=== PATIENT | female | born 1975 | race Caucasian/White ===

== ENCOUNTER 2017-12-14 10:21 | Day surgery (SDC) | payer OTHER ==
[~2017-12-14 10:21] MED LIST: AMOX500; AMOX500 PO; BENZ100A PO; BUTALB-ASPIRIN1 EACH PO; Bentyl20 MG PO; CIPR500 PO; CLON1 PO; CODBUTACEC PO; DULO60 PO; GABA100 PO; GABA300 PO; HYDACE5 PO; HYDR1TAB94 PO; METR500 PO; NAPR500 PO; OXYACE5T PO; PRED10 PO; PROCODE120 PO; PROM25 PO; PSEU120ER PO; Promethazine12.5 M1 PO; RXCODGUASY PO; RXHYDACE PO; RXPROCODSY PO; SULF10OPO OP; ZYRTEC10 M1 PO
== END 2017-12-14 13:20 | disposition home or self-care (01) ==
LOC: ORSCSDS 10:21
PROVIDERS: Internal Medicine Gastroenterology
PROC: 0DB98ZX Excision of Duodenum, Via Natural or Artificial Opening Endoscopic, Diagnostic (ICD-10-PCS; principal; 2017-12-14 13:15)
PROC: 0DB68ZX Excision of Stomach, Via Natural or Artificial Opening Endoscopic, Diagnostic (ICD-10-PCS; principal; 2017-12-14 13:15)
DX: R10.9 Unspecified abdominal pain (principal); K31.7 Polyp of stomach and duodenum; R11.2 Nausea with vomiting, unspecified; F41.8 Other specified anxiety disorders; M79.7 Fibromyalgia; Z79.899 Other long term (current) drug therapy
CPT/HCPCS: 88305; 88342; J2405

== ENCOUNTER 2021-03-15 18:29 | Inpatient (IN) | payer OTHER ==
[~2021-03-15] VITALS: Ht 149.9 cm; Wt 55.2 kg
[~2021-03-15 18:29] MED LIST changes: -CYCL10 PO; -DECARA1250 MC1 PO; -PROG100 PO; -Phenergan25 M1 PO
[2021-03-15] MEDS ORDERED: CYCL10 PO (20:03)
[2021-03-15] MEDS ORDERED: DECARA1250 MC1 PO (20:03)
[2021-03-15] MEDS ORDERED: PROG100 PO (20:04)
[2021-03-15] MEDS ORDERED: Phenergan25 M1 PO (20:04)
--- NOTE | 2021-03-16 05:37 | NUR ---
ADMISSION AND SHIFT SUMMARY RECIEVED REPORT FROM ER NURSE. PATIENT ARRIVED TO PCU 13 VIA ER GURNEY. ABLE TO PIVOT TRANSFER TO HOSPITAL BED WITH MINIMAL ASSIST. O2 SATURATION ABOVE 95% ON RA. ORIENTED TO ROOM AND CALL LIGHT SYSTEM. SUMMARY PATIENT ALERT AND ORIENTED T/O SHIFT. PATIENT RESTING QUIETLY, AWAKES TO VERBAL STIMULI. SOFT SBP'S WITH MAP ABOVE 65. REPORTED RADIATING CHEST PAIN ON ADMISSION, SEE EMAR. EPISODES OF N/V, SEE UPDATED ORDERS AND EMAR. EMESIS HAD SMALL AMOUNTS OF BROWN STRING LIKE CONSISTENCY. NOTIFIED HOSPITALIST OF THIS. HEPARIN GTT INFUSING INTO RIGHT AC. REMAINS ON RA WITH O2 SATURATION ABOVE 95%.
[2021-03-16 06:30] LABS: BASOPHILS ABSOLUTE AUTO 0.02 K/mm3 (0.00-0.23); BASOPHILS PERCENT AUTO 0 % (0-2); EOSINOPHILS PERCENT AUTO 0 % (0-6); Hematocrit 50.5 % (33.0-51.0); Hemoglobin 16.7 g/dL (11.5-16.0); IMMATURE GRAN ABSOLUTE AUTO 0.03 K/mm3 (0.00-0.10); IMMATURE GRAN PERCENT AUTO 0 % (0-1); LYMPHOCYTES ABSOLUTE AUTO 1.07 K/mm3 (0.84-5.20); LYMPHOCYTES PERCENT AUTO 13 % (21-46); MONOCYTES ABSOLUTE AUTO 0.76 K/mm3 (0.16-1.47); MONOCYTES PERCENT AUTO 10 % (4-13); Mean Corpuscular HGB 31.3 pg (26.0-34.0); Mean Corpuscular HGB Conc 33.1 g/dL (31.5-36.5); Mean Corpuscular Volume 95 fL (80-100); Mean Platelet Volume 11.7 fL (9.1-12.4); NEUTROPHILS PERCENT AUTO 76 % (41-73); Platelet Count 147 K/mm3 (150-400); RDW Coefficient Variation 12.8 % (11.7-14.2); RDW Standard Deviation 45.1 fL (35.1-46.3); Red Blood Cell Count 5.33 M/mm3 (3.80-5.20); White Blood Cell Count 7.98 K/mm3 (4.00-11.30)
[2021-03-16 06:48] LABS: Anion Gap 10 mmol/L (6-16); Blood Urea Nitrogen 28 mg/dL (8-24); Bun/Creatinine Ratio 29.2 (12.0-20.0); CO2, Blood 19 mmol/L (21-32); Calcium, Blood 7.4 mg/dL (8.5-10.1); Chloride, Blood 105 mmol/L (98-108); Creatinine, Blood 0.96 mg/dL (0.40-1.00); Glomerular Filtration Rate >60 (60-); Glucose, Blood 162 mg/dL (70-99); Magnesium, Blood 2.1 mg/dL (1.6-2.4); Potassium, Blood 4.8 mmol/L (3.5-5.5); Sodium, Blood 134 mmol/L (136-145); Troponin I 0.319 ng/mL (0.000-0.040)
[2021-03-16 09:58] LABS: D-Dimer, Quantitative <0.19 mg/L FEU (0.00-0.52)
--- NOTE | 2021-03-16 10:22 | NUR ---
CARE ASSUMPTION / UPDATE PT A&O X4. VSS. SPO2 > 92% ON RA. PT C/O 5/10 "SHARP" CP RADIATING TO L SHOULDER. PT FURTHER REPORTS CP "FEELS LIKE I'M SUFFOCATING." NITRO PASTE OINTMENT APPLIED PER EMAR W/ PT REPORT OF "NOT REALLY" IMPROVING SYMPTOMS. MD BERGERTE IN TO SEE PT. W/ INSTRUCTION TO CHANGE ECHO ORDER TO STAT. STAT ECHO PERFORMED. BACK TO PT RM W/ REPORT OF PT PERICARDITIS & PERICARDIAL EFFUSION. W/ INSTRUCTION TO DC HEPARIN GTT, START NS GTT & ADD COLCHICINE & ENTERIC COATED ASA, SEE ORDERS.
--- NOTE | 2021-03-16 17:39 | NUR ---
PAIN / EMESIS PT W/ 12/12 LEFT CHEST, SHOULDER & NECK PAIN. PT MEDICATED W/ PRN IV MORPHINE W/ NEAR IMMEDIATE IMPROVEMENT TO 10/12 PAIN & THEN REPORT OF PAIN "SUBSIDED" UPON NEXT RE-ASSESSMENT. PT THEN W/ EPISODE OF APPROX 100 MLS LIQUID CLEAR/BROWN EMESIS. PT C/O CONTINUED NAUSEA, MEDICATED W/ PRN IV PHENERGAN PER EMAR. PT REPORT OF IMPROVEMENT BUT STATING STILL SOME NAUSEA.
--- NOTE | 2021-03-16 18:16 | NUR ---
SHIFT SUMMARY PT CONTINUES TO BE A&O X4. PT C/O "SHARP" CP T/O SHIFT. PAIN INTERMITTENTLY IMPROVING W/ MEDICATION PER EMAR. PT ALSO C/O NAUSEA T/O SHIFT, MEDICATED W/ MEDICATIONS PER EMAR W/ TEMPORARY IMPROVEMENT WELL. PT W/ 1 EPISODE OF LIQUID CLEAR/BROWN EMESIS. PT SYS BP 90's MAJORITY OF SHIFT. MONITOR SHOWING SR-ST W/ ST ELEVATION, HR 90's-120's. NS GTT INFUSING PER ORDERS. SPO2 > 92% ON RA. PT LAYING IN BED W/ REPORT OF PAIN WORSENING W/ ANY ACTIVITY. PT BEDREST AT THIS TIME. PT LAST REPORT OF PAIN CURRENTLY "SUBSIDED" & PT NOW SLEEPING IN RM.
--- NOTE | 2021-03-17 02:20 | NUR ---
UPDATE CALL PLACED TO HOSPITALIST DUE TO PATIENT'S INCREASED CHEST PAIN. EXPLAINED TO HOSPITALIST THAT TYLENOL WAS GIVEN WITH LITTLE RELIEF AND VITAL SIGNS WERE NOT IN PARAMETERS TO GIVE MORPHINE OR APPLY NITRO PASTE. NEW ORDER RECIEVED FOR FENTYNAL, SEE EMAR. PATIENT'S VITAL SIGN MONITOR CHANGED FROM Q1HR TO [id number] TO MONITOR EFFECTS OF FENTYNAL.
--- NOTE | 2021-03-17 05:58 | NUR ---
SHIFT SUMMARY PATIENT ALERT AND ORIENTED X4. SOFT BLOOD PRESSURES THROUGH THE SHIFT. CALL PLACED TO HOSPITALIST AROUND 0400, ORDERS RECIEVED FOR FLUID BOLUS, SEE EMAR. BLOOD PRESSURES IMPROVING SINCE BOLUS WAS GIVEN. PATIENT HAD 2 EPISODES OF VOMITTING WITH SMALL AMOUNT OF EMESIS EACH TIME. MEDICATED PER EMAR. PATIENT STILL REPORTING CHEST PAIN, SEE OTHER NOTE REGARDING UPDATED PAIN MEDICATION AND ADMINISTRATION. NO OTHER SIGNIFICANT CHANGES.
[2021-03-17 06:44] LABS: Albumin, Blood 1.8 g/dL (3.4-5.0); Anion Gap 6 mmol/L (6-16); Blood Urea Nitrogen 23 mg/dL (8-24); Bun/Creatinine Ratio 26.4 (12.0-20.0); CO2, Blood 19 mmol/L (21-32); Calcium, Blood 6.6 mg/dL (8.5-10.1); Chloride, Blood 108 mmol/L (98-108); Creatinine, Blood 0.87 mg/dL (0.40-1.00); Glomerular Filtration Rate >60 (60-); Glucose, Blood 107 mg/dL (70-99); Phosphorus, Blood 2.4 mg/dL (2.5-4.9); Potassium, Blood 4.5 mmol/L (3.5-5.5); Sodium, Blood 133 mmol/L (136-145)
--- NOTE | 2021-03-17 08:01 | NUR ---
CARE ASSUMPTION PATIENT IS A/OX4. SOFT BP. SPO2 >90% ON RA. PATIENT REPORTS NO CHEST PAIN. PATIENT REPORTS PAIN WHEN REPOSITIONING, BUT ONCE REPOSITIONED PAIN IS RELIEVED. PATIENT BECOMES NAUSEOUS WITH REPOSITIONING. BED IN LOWEST POSITION AND CALL LIGHT WITHIN REACH. WILL CONTINUE TO MONITOR AND PROVIDE CARE.
[2021-03-17 08:31] LABS: BASOPHILS ABSOLUTE AUTO 0.02 K/mm3 (0.00-0.23); BASOPHILS PERCENT AUTO 0 % (0-2); EOSINOPHILS PERCENT AUTO 0 % (0-6); Hematocrit 40.9 % (33.0-51.0); Hemoglobin 13.2 g/dL (11.5-16.0); IMMATURE GRAN ABSOLUTE AUTO 0.02 K/mm3 (0.00-0.10); IMMATURE GRAN PERCENT AUTO 0 % (0-1); LYMPHOCYTES PERCENT AUTO 17 % (21-46); MONOCYTES ABSOLUTE AUTO 0.64 K/mm3 (0.16-1.47); MONOCYTES PERCENT AUTO 10 % (4-13); Mean Corpuscular HGB 31.1 pg (26.0-34.0); Mean Corpuscular HGB Conc 32.3 g/dL (31.5-36.5); Mean Corpuscular Volume 96 fL (80-100); Mean Platelet Volume 12.5 fL (9.1-12.4); NEUTROPHILS ABSOLUTE AUTO 4.88 K/mm3 (1.96-9.15); NEUTROPHILS PERCENT AUTO 73 % (41-73); Platelet Count 127 K/mm3 (150-400); RDW Coefficient Variation 13.1 % (11.7-14.2); RDW Standard Deviation 46.9 fL (35.1-46.3); Red Blood Cell Count 4.25 M/mm3 (3.80-5.20); White Blood Cell Count 6.66 K/mm3 (4.00-11.30)
--- NOTE | 2021-03-17 17:54 | NUR ---
SHIFT SUMMARY PATIENT A/OX4. VSS. SOFT BP. SPO2 >90% ON RA. TELE SINUS TACH. PATIENT HAS REPORTED CHEST PAIN THROUGHOUT THE SHIFT WITH MOVEMENT. PATIENT MEDICATED PER EMAR. PATIENT VOMITTED ONCE DURING THE SHIFT, ABOUT 50ML CLEAR. PATIENT MEDICATED PER EMAR. PLAN TO HAVE ECHO DONE IN AM. CALL LIGHT WITHIN REACH. WILL CONTINUE TO MONITOR AND PROVIDE CARE UNTIL HAND OFF WITH NEXT SHIFT.
[2021-03-18 04:11] LABS: Albumin, Blood 1.8 g/dL (3.4-5.0); Anion Gap 8 mmol/L (6-16); Blood Urea Nitrogen 22 mg/dL (8-24); CO2, Blood 21 mmol/L (21-32); Calcium, Blood 6.7 mg/dL (8.5-10.1); Chloride, Blood 106 mmol/L (98-108); Creatinine, Blood 0.88 mg/dL (0.40-1.00); Glomerular Filtration Rate >60 (60-); Glucose, Blood 110 mg/dL (70-99); Phosphorus, Blood 2.1 mg/dL (2.5-4.9); Potassium, Blood 4.3 mmol/L (3.5-5.5); Sodium, Blood 135 mmol/L (136-145)
--- NOTE | 2021-03-18 06:36 | NUR ---
SHIFT SUMMARY PT SLEPT WELL THROUGH THE NIGHT, ALERT AND ORIENTED. SOME COUGHING NOTED, PRN COUGH MEDS GIVEN. TELE NSR. O2 RA, BUT DID DESAT TO 85% WHEN SLEEPING, PLACED 2LNC ON PRN. SATS >95% WHEN AWAKE. INTERMITTENT CHEST PAIN WITH ACTIVITY OR COUGHING. PAIN MEDS OFFERED OUTSIDE OF SCHEDULED ADVIL, PT DECLINED. VOIDING TO BEDPAN. NO BM. VSS, HOURLY BP, RUNNING SOFT, BUT STABLE. CALL LIGHT WITHIN REACH, BED IN LOWEST POSITION. WILL CONTINUE TO MONITOR.
--- NOTE | 2021-03-18 07:56 | NUR ---
CARE ASSUMPTION PATIENT A/OX4. VSS. SOFT BP. TELE SR-ST. SPO2 >90% ON 2L NC WHEN SLEEPING, OTHERWISE ON RA. PATIENT HAS A PRODUCTIVE COUGH. PATIENT REPORTS CHEST PAIN WITH MOVEMENT. NO SOB. PATIENT REPORTS NO NAUSE THIS MORNING. CALL LIGHT WITHIN REACH AND BED IN LOWEST POSITION. WILL CONTINUE TO MONITOR AND PROVIDE CARE.
[2021-03-18 10:43] LABS: BASOPHILS ABSOLUTE AUTO 0.01 K/mm3 (0.00-0.23); BASOPHILS PERCENT AUTO 0 % (0-2); EOSINOPHILS ABSOLUTE AUTO 0.01 K/mm3 (0.00-0.68); EOSINOPHILS PERCENT AUTO 0 % (0-6); Hematocrit 39.7 % (33.0-51.0); Hemoglobin 13.1 g/dL (11.5-16.0); IMMATURE GRAN ABSOLUTE AUTO 0.02 K/mm3 (0.00-0.10); IMMATURE GRAN PERCENT AUTO 0 % (0-1); LYMPHOCYTES ABSOLUTE AUTO 0.82 K/mm3 (0.84-5.20); LYMPHOCYTES PERCENT AUTO 15 % (21-46); MONOCYTES ABSOLUTE AUTO 0.44 K/mm3 (0.16-1.47); MONOCYTES PERCENT AUTO 8 % (4-13); Mean Corpuscular HGB 31.6 pg (26.0-34.0); Mean Corpuscular Volume 96 fL (80-100); Mean Platelet Volume 12.8 fL (9.1-12.4); NEUTROPHILS ABSOLUTE AUTO 4.22 K/mm3 (1.96-9.15); NEUTROPHILS PERCENT AUTO 76 % (41-73); Platelet Count 119 K/mm3 (150-400); RDW Coefficient Variation 13.3 % (11.7-14.2); RDW Standard Deviation 47.8 fL (35.1-46.3); Red Blood Cell Count 4.14 M/mm3 (3.80-5.20); White Blood Cell Count 5.52 K/mm3 (4.00-11.30)
--- NOTE | 2021-03-18 12:45 | NUR ---
TRANSFER TO ICU THIS RN GAVE REPORT TO ICU NURSE. PATIENT BELONGINGS COLLECTED AND TAKEN OVER WITH HER TO ICU.
--- NOTE | 2021-03-18 12:54 | NUR ---
8097 TELEPHONE REPORT RECIEVED FROM GHADA APPIAH RN. SBAR/PLAN OF CARE REVIEWED. ROOM/BED READY; AWAITING ARRIVAL OF PATIENT
[2021-03-18 13:38] LABS: Stool Occult Blood Guaiac 1 Pos (Neg)
[2021-03-18 13:52] LABS: Hematocrit 40.1 % (33.0-51.0); Hemoglobin 12.9 g/dL (11.5-16.0)
--- NOTE | 2021-03-18 14:22 | NUR ---
1330 PATIENT ARRIVED TO UNIT. ASSUMED CARE; PATIENT A/OX4. NC AT 3LPM. NS BOLUS INFUSING. WILL CONTINUE TO MONITOR SEE ASSESSMENT 1402 RECEIVED CALL FROM TRANSFER CENTER. PATIENT TO BE TRANSFERRED TO [facility] ICU. 1419 ATTEMPED TO CALL REPORT TO [place] ICU. RECIEVING NURSE NOT AVAIL WILL CALL BACK IN 30MIN.
--- NOTE | 2021-03-18 16:16 | NUR ---
1500 TELEPHONE REPORT GIVEN TO RECIEVING RN PAMELA) AT [facility] ICU. SBAR/PLAN OF CARE/RECENT RESULTS REVIEWED. MEDICAL TRANSPORT AT BEDSIDE. PATIENT TRANSFERRED OUT WITHOUT INCIDENT
== END 2021-03-18 15:30 | disposition short-term general hospital (02) | DRG 177 ==
LOC: ER 18:29 → PCU 03-16 00:34 → ICUW 03-18 13:26
PROVIDERS: Family Medicine; Hospitalist; Internal Medicine Cardiovascular Disease; ADMIT Internal Medicine
PROC: 8E0ZXY6 Isolation (ICD-10-PCS; principal; 2021-03-16)
DX: U07.1 COVID-19 (principal); I40.0 Infective myocarditis; J12.82 Pneumonia due to coronavirus disease 2019; I21.A1 Myocardial infarction type 2; N17.9 Acute kidney failure, unspecified; E87.1 Hypo-osmolality and hyponatremia; I31.3 Pericardial effusion (noninflammatory); M79.7 Fibromyalgia; K58.9 Irritable bowel syndrome, unspecified; G43.909 Migraine, unspecified, not intractable, without status migrainosus; E86.0 Dehydration; F41.8 Other specified anxiety disorders; K21.9 Gastro-esophageal reflux disease without esophagitis; Z98.890 Other specified postprocedural states
CPT/HCPCS: 36415; 71046; 71260; 80048; 80069; 82272; 83735; 83880; 84484; 84703; 85014; 85018; 85025; 85379; 85651; 85730; 86038; 86141; 93005; 93010; 93306; 93308; 93321; 94762; 96361; 96374; 96375; 99285-25; A9270; C9113; J1200; J1644; J1650; J1885; J2270; J2405; J2550; J2765; J3010; J7030; J7040; Q9967

== ENCOUNTER → 2021-03-15 | Outpatient (CLI) | payer OTHER ==
[~2021-03-15] MED LIST changes: +CYCL10 PO; +DECARA1250 MC1 PO; +Omeprazole20 M1 PO; +PROG100 PO; +Phenergan25 M1 PO
[2021-03-15 17:34] LABS: BASOPHILS ABSOLUTE AUTO 0.01 K/mm3 (0.00-0.23); BASOPHILS PERCENT AUTO 0 % (0-2); EOSINOPHILS PERCENT AUTO 0 % (0-6); Hematocrit 51.4 % (33.0-51.0); Hemoglobin 17.7 g/dL (11.5-16.0); IMMATURE GRAN ABSOLUTE AUTO 0.01 K/mm3 (0.00-0.10); IMMATURE GRAN PERCENT AUTO 0 % (0-1); LYMPHOCYTES ABSOLUTE AUTO 1.21 K/mm3 (0.84-5.20); LYMPHOCYTES PERCENT AUTO 19 % (21-46); MONOCYTES ABSOLUTE AUTO 0.57 K/mm3 (0.16-1.47); MONOCYTES PERCENT AUTO 9 % (4-13); Mean Corpuscular HGB 31.7 pg (26.0-34.0); Mean Corpuscular HGB Conc 34.4 g/dL (31.5-36.5); Mean Corpuscular Volume 92 fL (80-100); Mean Platelet Volume 12.1 fL (9.1-12.4); NEUTROPHILS ABSOLUTE AUTO 4.49 K/mm3 (1.96-9.15); NEUTROPHILS PERCENT AUTO 71 % (41-73); Platelet Count 198 K/mm3 (150-400); RDW Coefficient Variation 12.7 % (11.7-14.2); RDW Standard Deviation 42.8 fL (35.1-46.3); Red Blood Cell Count 5.59 M/mm3 (3.80-5.20); White Blood Cell Count 6.29 K/mm3 (4.00-11.30)
[2021-03-15 17:57] LABS: Bun/Creatinine Ratio 20.1 (12.0-20.0); Calcium, Blood 8.4 mg/dL (8.5-10.1); Creatinine, Blood 1.49 mg/dL (0.40-1.00); Potassium, Blood 4.3 mmol/L (3.5-5.5); Troponin I 0.435 ng/mL (0.000-0.040)
== END | disposition home or self-care (01) ==
LOC: LAB 17:23 → LAB SHORT 17:23
PROVIDERS: Family Medicine
DX: R06.02 Shortness of breath (principal)
CPT/HCPCS: 80048; 83880; 84484; 85025; 85379

== ENCOUNTER → 2021-05-27 | Outpatient (CLI) | payer OTHER ==
[~2021-05-27] MED LIST changes: +CYCL10 PO; +DECARA1250 MC1 PO; +PROG100 PO; +Phenergan25 M1 PO
[2021-05-27 19:16] LABS: BASOPHILS ABSOLUTE AUTO 0.04 K/mm3 (0.00-0.23); BASOPHILS PERCENT AUTO 1 % (0-2); EOSINOPHILS ABSOLUTE AUTO 0.11 K/mm3 (0.00-0.68); EOSINOPHILS PERCENT AUTO 2 % (0-6); Hematocrit 40.9 % (33.0-51.0); Hemoglobin 13.1 g/dL (11.5-16.0); IMMATURE GRAN ABSOLUTE AUTO 0.02 K/mm3 (0.00-0.10); IMMATURE GRAN PERCENT AUTO 0 % (0-1); LYMPHOCYTES ABSOLUTE AUTO 2.77 K/mm3 (0.84-5.20); LYMPHOCYTES PERCENT AUTO 43 % (21-46); MONOCYTES ABSOLUTE AUTO 0.58 K/mm3 (0.16-1.47); MONOCYTES PERCENT AUTO 9 % (4-13); Mean Corpuscular HGB 30.4 pg (26.0-34.0); Mean Corpuscular Volume 95 fL (80-100); Mean Platelet Volume 11.6 fL (9.1-12.4); NEUTROPHILS ABSOLUTE AUTO 2.97 K/mm3 (1.96-9.15); NEUTROPHILS PERCENT AUTO 46 % (41-73); Platelet Count 252 K/mm3 (150-400); RDW Standard Deviation 45.6 fL (35.1-46.3); Red Blood Cell Count 4.31 M/mm3 (3.80-5.20); White Blood Cell Count 6.49 K/mm3 (4.00-11.30)
[2021-05-27 19:22] LABS: Alanine Aminotransfer (ALT/SGP 33 U/L (12-78); Albumin, Blood 3.7 g/dL (3.4-5.0); Alk Phos 55 U/L (50-136); Anion Gap 5 mmol/L (6-16); Aspartate Aminotrans (AST/SGOT 26 U/L (12-37); Bilirubin, Total 0.5 mg/dL (0.1-1.0); Blood Urea Nitrogen 11 mg/dL (8-24); Bun/Creatinine Ratio 16.6 (12.0-20.0); CO2, Blood 27 mmol/L (21-32); Calcium, Blood 9.4 mg/dL (8.5-10.1); Chloride, Blood 107 mmol/L (98-108); Creatinine, Blood 0.66 mg/dL (0.40-1.00); Globulin, Blood 3.6 g/dL (2.2-4.0); Glomerular Filtration Rate >60 (60-); Glucose, Blood 91 mg/dL (70-99); Potassium, Blood 4.5 mmol/L (3.5-5.5); Sodium, Blood 139 mmol/L (136-145); Total Protein, Blood 7.3 g/dL (6.4-8.2)
[2021-05-29 16:07] LABS: ANTI-CENTROMERE B ANTIBODIES 0.4 AI (0.0-0.9); ANTI-DNA (DS) AB QN 1 IU/mL (0-9); ANTI-JO-1 <0.2 AI (0.0-0.9); ANTICHROMATIN ANTIBODIES 0.3 AI (0.0-0.9); ANTISCLERODERMA-70 ANTIBODIES <0.2 AI (0.0-0.9); RNP ANTIBODIES 0.9 AI (0.0-0.9); SJOGREN'S ANTI-SS-A <0.2 AI (0.0-0.9); SJOGREN'S ANTI-SS-B <0.2 AI (0.0-0.9); SMITH ANTIBODIES <0.2 AI (0.0-0.9)
== END | disposition home or self-care (01) ==
LOC: LAB SHORT 17:42
PROVIDERS: Internal Medicine Rheumatology
DX: R76.8 Other specified abnormal immunological findings in serum (principal)
CPT/HCPCS: 80053; 85025; 85651

== ENCOUNTER 2021-06-06 21:30 | Observation (INO) | payer OTHER ==
[~2021-06-06] VITALS: Ht 149.9 cm; Wt 51.1 kg
[2021-06-06 22:19] LABS: BASOPHILS ABSOLUTE AUTO 0.04 K/mm3 (0.00-0.23); BASOPHILS PERCENT AUTO 1 % (0-2); EOSINOPHILS ABSOLUTE AUTO 0.08 K/mm3 (0.00-0.68); EOSINOPHILS PERCENT AUTO 1 % (0-6); Hematocrit 37.8 % (33.0-51.0); Hemoglobin 12.5 g/dL (11.5-16.0); IMMATURE GRAN ABSOLUTE AUTO 0.01 K/mm3 (0.00-0.10); IMMATURE GRAN PERCENT AUTO 0 % (0-1); LYMPHOCYTES ABSOLUTE AUTO 2.69 K/mm3 (0.84-5.20); LYMPHOCYTES PERCENT AUTO 34 % (21-46); MONOCYTES ABSOLUTE AUTO 0.66 K/mm3 (0.16-1.47); MONOCYTES PERCENT AUTO 8 % (4-13); Mean Corpuscular HGB 30.9 pg (26.0-34.0); Mean Corpuscular HGB Conc 33.1 g/dL (31.5-36.5); Mean Corpuscular Volume 94 fL (80-100); Mean Platelet Volume 12.1 fL (9.1-12.4); NEUTROPHILS ABSOLUTE AUTO 4.53 K/mm3 (1.96-9.15); NEUTROPHILS PERCENT AUTO 57 % (41-73); Platelet Count 203 K/mm3 (150-400); RDW Coefficient Variation 13.2 % (11.7-14.2); RDW Standard Deviation 45.6 fL (35.1-46.3); Red Blood Cell Count 4.04 M/mm3 (3.80-5.20); White Blood Cell Count 8.01 K/mm3 (4.00-11.30)
[2021-06-06 23:05] LABS: Alanine Aminotransfer (ALT/SGP 34 U/L (12-78); Albumin, Blood 3.5 g/dL (3.4-5.0); Albumin/Globulin Ratio 0.9 (0.8-1.8); Alk Phos 56 U/L (50-136); Anion Gap 5 mmol/L (6-16); Aspartate Aminotrans (AST/SGOT 19 U/L (12-37); Bilirubin, Direct <0.1 mg/dL (0.0-0.3); Bilirubin, Total 0.2 mg/dL (0.1-1.0); Blood Urea Nitrogen 15 mg/dL (8-24); Bun/Creatinine Ratio 20.9 (12.0-20.0); CO2, Blood 26 mmol/L (21-32); Calcium, Blood 8.7 mg/dL (8.5-10.1); Chloride, Blood 110 mmol/L (98-108); Creatinine, Blood 0.72 mg/dL (0.40-1.00); Globulin, Blood 3.9 g/dL (2.2-4.0); Glomerular Filtration Rate >60 (60-); Glucose, Blood 80 mg/dL (70-99); Potassium, Blood 4.2 mmol/L (3.5-5.5); Sodium, Blood 141 mmol/L (136-145); Total Protein, Blood 7.4 g/dL (6.4-8.2)
[2021-06-07 01:12] LABS: Influenza A, PCR NEGATIVE (NEGATIVE); Influenza B, PCR NEGATIVE (NEGATIVE); Resp Syncytial Virus, PCR NEGATIVE (NEGATIVE); SARS-Cov-2 (COVID-19) PCR, MMC NEGATIVE (NEGATIVE)
[2021-06-07] MEDS ORDERED: COLCHICINE0.6 MG PO (01:53)
[2021-06-07] MEDS ORDERED: HYDSUL200 PO (01:53)
[2021-06-07] MEDS ORDERED: BUTALB-ACETAMI1 EAC6 PO (01:56)
--- NOTE | 2021-06-07 02:01 | NUR ---
RECIEVED REPORT FROM LUIS SHELBY RN, @ 0200. PATIENT TO TRANSFER TO ROOM 348.
--- NOTE | 2021-06-07 02:45 | NUR ---
PATIENT ARRIVED TO ROOM 348 @ 0220 AND TRANSFERED TO HOSPITAL BED WITH SBA. PATIENT ALERT AND ORIENTED, JUST TIRED. PAIN IS MANAGED AT THIS TIME. VITALS STABLE. PATIENT CONTINUES ON IV FLUIDS. ADMISSION ASSESSMENT/ H&P AND MED REC COMPLETED. PATIENT RESTING IN BED AT THIS TIME. CALL LIGHT WITHIN REACH.
[2021-06-07 06:12] LABS: BASOPHILS ABSOLUTE AUTO 0.02 K/mm3 (0.00-0.23); BASOPHILS PERCENT AUTO 0 % (0-2); EOSINOPHILS ABSOLUTE AUTO 0.01 K/mm3 (0.00-0.68); EOSINOPHILS PERCENT AUTO 0 % (0-6); Hematocrit 36.6 % (33.0-51.0); IMMATURE GRAN ABSOLUTE AUTO 0.02 K/mm3 (0.00-0.10); IMMATURE GRAN PERCENT AUTO 0 % (0-1); LYMPHOCYTES ABSOLUTE AUTO 1.22 K/mm3 (0.84-5.20); LYMPHOCYTES PERCENT AUTO 15 % (21-46); MONOCYTES ABSOLUTE AUTO 0.31 K/mm3 (0.16-1.47); MONOCYTES PERCENT AUTO 4 % (4-13); Mean Corpuscular HGB 30.9 pg (26.0-34.0); Mean Corpuscular HGB Conc 32.8 g/dL (31.5-36.5); Mean Corpuscular Volume 94 fL (80-100); Mean Platelet Volume 11.9 fL (9.1-12.4); NEUTROPHILS ABSOLUTE AUTO 6.37 K/mm3 (1.96-9.15); NEUTROPHILS PERCENT AUTO 80 % (41-73); Platelet Count 186 K/mm3 (150-400); RDW Coefficient Variation 13.3 % (11.7-14.2); RDW Standard Deviation 45.7 fL (35.1-46.3); Red Blood Cell Count 3.88 M/mm3 (3.80-5.20); White Blood Cell Count 7.95 K/mm3 (4.00-11.30)
[2021-06-07 06:39] LABS: Alanine Aminotransfer (ALT/SGP 28 U/L (12-78); Albumin, Blood 3.1 g/dL (3.4-5.0); Albumin/Globulin Ratio 0.9 (0.8-1.8); Alk Phos 42 U/L (50-136); Anion Gap 4 mmol/L (6-16); Aspartate Aminotrans (AST/SGOT 24 U/L (12-37); Bilirubin, Total 0.4 mg/dL (0.1-1.0); Blood Urea Nitrogen 13 mg/dL (8-24); Bun/Creatinine Ratio 19.5 (12.0-20.0); CO2, Blood 24 mmol/L (21-32); Calcium, Blood 8.6 mg/dL (8.5-10.1); Chloride, Blood 111 mmol/L (98-108); Creatinine, Blood 0.67 mg/dL (0.40-1.00); Globulin, Blood 3.4 g/dL (2.2-4.0); Glomerular Filtration Rate >60 (60-); Glucose, Blood 131 mg/dL (70-99); Potassium, Blood 4.9 mmol/L (3.5-5.5); Sodium, Blood 139 mmol/L (136-145); Total Protein, Blood 6.5 g/dL (6.4-8.2)
--- NOTE | 2021-06-07 09:00 | NUR ---
PT PLEASANT COOP A/O. INDEPENDANT TO B/ROOM. PAIN MANAGABLE IN RLQ ABD. H/R REG, NO MURMER NOTED. NO TELE. LUNGS CLEAR, RESP EASY, UNLABORED. ON R.A. BT X4 LAST BM YEST PER PT. VIODS INDPENDANT TO BATHROOM. BED IN LOW POSITION, CALL LITE IN REACH, CALLS APPROP. [facility] PRESENTLY [facility]PO
--- NOTE | 2021-06-07 16:47 | NUR ---
PT BACK TO ROOM THIS AFT. AFTER [facility]. STATES PAIN MANAGABLE AT THIS TIME. WILL ADVISE IF NEEDS MORE COVERAGE. HER SIG OTHER IN ROOM AT THIS TIME. PEND RESULTS FROM SCAN. POSS SURG ,CALLED DR FLORES TO FIND OUT IF EAT OR SURG. NO OTHER CONCERNS NOTED AT THIS TIME. BED IN LOW POSITION, CALL LITE IN REACH, CALLS APPROP
--- NOTE | 2021-06-07 18:24 | NUR ---
PT PLEASANTLY CONFUSED. FLIGHTS OF IDEAS. CONTINUES TO BE IN RESTRAINTS IS NOT REDIRECTBLE. CONTINUOUS STORIES ABOUT FLIGHTS OF IDEAS. PT DENIES PAIN. IN TO SEE TODAY. PT SITTING IN CHAIR TO EAT THIS [place]. NO NEW CONCNERNS NOTED. BED IN LOW POSITION, CALL LITE IN REACH, BED ALARM AND REMOTE MONITORING IN PLACE FOR SAFETY
[2021-06-07 21:11] LABS: Source, Urine Clean Catch
[2021-06-07 21:16] LABS: Appearance, Urine Clear (Clear); Bilirubin, Urine Neg (Neg); Blood, Urine Neg (Neg); Color, Urine Pale Yellow (P-Yellow); Glucose Qualitative, Urine Neg (Neg); Ketones, Urine Neg (Neg); Leukocyte Esterase, Urine 2+ (Neg); Nitrite, Urine Neg (Neg); Protein, Urine Neg (Neg); Specific Gravity, Urine 1.005 (1.003-1.022); Urobilinogen, Urine NORM (Normal)
[2021-06-07 21:46] LABS: Bacteria Few /hpf; Red Blood Cells, Urine Not Seen /hpf (0-2); Squamous Epithelial Cells Few /hpf (Few)
--- NOTE | 2021-06-08 05:31 | NUR ---
PATIENT HAD A GOOD NIGHT. TOOK PREP FOR CT SCAN R/T IODINE ALLERGY AND WAS ABLE TO COMPLETE THE SCAN WITHOUT COMPLICATION. C/O PAIN AT HS AND WAS MEDICATED WITH TORADOL PER EMAR WITH EFFECTIVENESS. PATIENT SEEMED TO GET SOME GOOD SLEEP T/O THE NIGHT. CALL LIGHT WITHIN REACH.
[2021-06-08 05:48] LABS: BASOPHILS PERCENT AUTO 0 % (0-2); EOSINOPHILS PERCENT AUTO 0 % (0-6); Hematocrit 37.4 % (33.0-51.0); Hemoglobin 12.3 g/dL (11.5-16.0); IMMATURE GRAN ABSOLUTE AUTO 0.03 K/mm3 (0.00-0.10); IMMATURE GRAN PERCENT AUTO 0 % (0-1); LYMPHOCYTES ABSOLUTE AUTO 0.74 K/mm3 (0.84-5.20); LYMPHOCYTES PERCENT AUTO 11 % (21-46); MONOCYTES ABSOLUTE AUTO 0.04 K/mm3 (0.16-1.47); MONOCYTES PERCENT AUTO 1 % (4-13); Mean Corpuscular HGB Conc 32.9 g/dL (31.5-36.5); Mean Corpuscular Volume 94 fL (80-100); Mean Platelet Volume 12.5 fL (9.1-12.4); NEUTROPHILS PERCENT AUTO 88 % (41-73); Platelet Count 186 K/mm3 (150-400); RDW Coefficient Variation 13.3 % (11.7-14.2); RDW Standard Deviation 46.1 fL (35.1-46.3); Red Blood Cell Count 3.97 M/mm3 (3.80-5.20); White Blood Cell Count 6.81 K/mm3 (4.00-11.30)
[2021-06-08 06:24] LABS: Alanine Aminotransfer (ALT/SGP 27 U/L (12-78); Albumin, Blood 3.2 g/dL (3.4-5.0); Albumin/Globulin Ratio 0.9 (0.8-1.8); Alk Phos 41 U/L (50-136); Anion Gap 6 mmol/L (6-16); Aspartate Aminotrans (AST/SGOT 15 U/L (12-37); Bilirubin, Total 0.5 mg/dL (0.1-1.0); Blood Urea Nitrogen 8 mg/dL (8-24); Bun/Creatinine Ratio 10.8 (12.0-20.0); CO2, Blood 24 mmol/L (21-32); Chloride, Blood 109 mmol/L (98-108); Creatinine, Blood 0.74 mg/dL (0.40-1.00); Globulin, Blood 3.5 g/dL (2.2-4.0); Glomerular Filtration Rate >60 (60-); Glucose, Blood 145 mg/dL (70-99); Potassium, Blood 4.6 mmol/L (3.5-5.5); Sodium, Blood 139 mmol/L (136-145); Total Protein, Blood 6.7 g/dL (6.4-8.2)
--- NOTE | 2021-06-08 15:00 | NUR ---
DISCHARGE INSTRUCTIONS COMPLETED AND DISCUSSED WITH PT EXPRESSING UNDERSTANDING. ONLY CHANGE FROM DR. FLORES MED ORDERS WAS FOR PT TO STOP TAKING PLAQUENAL WHICH PT IS AWARE OF AND THAT SHE IS TO CALL PSYCHIATRIC LPN TOMORROW IF SHE DOESN'T HEAR FROM MD ABOUT MED CHANGE FOR HER LUPUS. TO [place] VIA W/C WITH DAUGHTER TRANSPORTING HER HOME.
== END 2021-06-08 15:09 | disposition home or self-care (01) ==
LOC: ER 21:30 → MEDS 21:31 → ERHOLD 21:31 → MEDS 06-07 02:19
PROVIDERS: Emergency Medicine; Physician Assistant; Surgery; ADMIT Surgery
DX: R10.11 Right upper quadrant pain (principal); R11.2 Nausea with vomiting, unspecified; K58.1 Irritable bowel syndrome with constipation; M32.9 Systemic lupus erythematosus, unspecified; I31.9 Disease of pericardium, unspecified; G43.909 Migraine, unspecified, not intractable, without status migrainosus; Z20.822 Contact with and (suspected) exposure to COVID-19; Z91.013 Allergy to seafood; Z88.8 Allergy status to other drugs, medicaments and biological substances
CPT/HCPCS: 0241U; 36415; 74177; 76705; 78226; 80053; 81001; 82248; 82570; 83690; 84110; 84703; 85025; 87086; 93005; 93010; 96365; 96366; 96367; 96375; 96376; 99285-25; A9270; A9537; G0378; J0694; J0780; J1170; J1200; J1885; J2060; J2405; J2930; Q9967

== ENCOUNTER → 2021-07-19 | Outpatient (CLI) | payer OTHER ==
[~2021-07-19] MED LIST changes: +BUTALB-ACETAMI1 EAC6 PO; +COLCHICINE0.6 MG PO; +HYDSUL200 PO
[2021-07-19 13:00] LABS: Test Name 99824
== END ==
LOC: LAB SHORT 12:45 → LAB FUT 07-16 14:45
PROVIDERS: Internal Medicine Hematology & Oncology
DX: E80.20 Unspecified porphyria (principal)
CPT/HCPCS: 81050

== ENCOUNTER → 2021-10-13 | Outpatient (CLI) | payer OTHER ==
[2021-10-13 14:04] LABS: Albumin, Blood 3.5 g/dL (3.4-5.0); Bilirubin, Total 0.2 mg/dL (0.1-1.0); Calcium, Blood 8.9 mg/dL (8.5-10.1); Creatinine, Blood 0.8 mg/dL (0.40-1.00); Globulin, Blood 3.5 g/dL (2.2-4.0); Potassium, Blood 4.3 mmol/L (3.5-5.5)
[2021-10-13 14:15] LABS: BASOPHILS ABSOLUTE AUTO 0.04 K/mm3 (0.00-0.23); BASOPHILS PERCENT AUTO 1 % (0-2); EOSINOPHILS ABSOLUTE AUTO 0.13 K/mm3 (0.00-0.68); EOSINOPHILS PERCENT AUTO 3 % (0-6); Hematocrit 40.4 % (33.0-51.0); Hemoglobin 13.6 g/dL (11.5-16.0); IMMATURE GRAN ABSOLUTE AUTO 0.01 K/mm3 (0.00-0.10); IMMATURE GRAN PERCENT AUTO 0 % (0-1); LYMPHOCYTES ABSOLUTE AUTO 1.83 K/mm3 (0.84-5.20); LYMPHOCYTES PERCENT AUTO 35 % (21-46); MONOCYTES ABSOLUTE AUTO 0.47 K/mm3 (0.16-1.47); MONOCYTES PERCENT AUTO 9 % (4-13); Mean Corpuscular HGB 31.6 pg (26.0-34.0); Mean Corpuscular HGB Conc 33.7 g/dL (31.5-36.5); Mean Corpuscular Volume 94 fL (80-100); NEUTROPHILS ABSOLUTE AUTO 2.76 K/mm3 (1.96-9.15); NEUTROPHILS PERCENT AUTO 53 % (41-73); RDW Coefficient Variation 11.9 % (11.7-14.2); RDW Standard Deviation 41.5 fL (35.1-46.3); Red Blood Cell Count 4.31 M/mm3 (3.80-5.20); White Blood Cell Count 5.24 K/mm3 (4.00-11.30)
[2021-10-13 15:12] LABS: Mean Platelet Volume 12.5 fL (9.1-12.4); Platelet Count 205 K/mm3 (150-400)
== END | disposition home or self-care (01) ==
LOC: LAB SHORT 09:10
PROVIDERS: Internal Medicine Rheumatology
DX: M79.7 Fibromyalgia (principal)
CPT/HCPCS: 80053; 85025; 85651

== ENCOUNTER 2022-09-14 10:49 | Day surgery (SDC) | payer OTHER ==
[~2022-09-14] VITALS: Ht 149.9 cm; Wt 57.2 kg
[2022-09-14] MEDS ORDERED: PROP60 (11:21)
[2022-09-14] MEDS ORDERED: Ondansetron4 MG/2 M2 (11:23)
[2022-09-14] MEDS ORDERED: [UNRECOGNIZED DRUG - OTHER] (11:23)
[2022-09-14] MEDS ORDERED: IBU800 MG (11:24)
[2022-09-14 13:24] VITALS: BP 120/86
--- NOTE | 2022-09-14 13:25 | NUR ---
09/14/22 1325 Laura Trinidad PT IS DIFFICULT TO ROUSE EVEN WITH STIMULATION. REFUSING TO OPEN EYES WHEN ASKED TO DO SO. WOULD NOT WAKE UP FOR MD RODRIGUEZ TO SPEAK WITH HER. CONT TO MONITOR AND TRY TO AROUSE.
== END 2022-09-14 14:43 | disposition home or self-care (01) ==
LOC: ORSCSDS 10:49
PROVIDERS: Internal Medicine Gastroenterology
PROC: 0DB98ZX Excision of Duodenum, Via Natural or Artificial Opening Endoscopic, Diagnostic (ICD-10-PCS; principal; 2022-09-14 12:15)
PROC: 0DB78ZX Excision of Stomach, Pylorus, Via Natural or Artificial Opening Endoscopic, Diagnostic (ICD-10-PCS; principal; 2022-09-14 12:15)
PROC: 0DBM8ZX Excision of Descending Colon, Via Natural or Artificial Opening Endoscopic, Diagnostic (ICD-10-PCS; principal; 2022-09-14 12:15)
DX: K90.0 Celiac disease (principal); K59.09 Other constipation; D12.4 Benign neoplasm of descending colon; M79.7 Fibromyalgia; Z79.899 Other long term (current) drug therapy; F41.8 Other specified anxiety disorders
CPT/HCPCS: 88305; 88342; J2405; J2704; J7120

== ENCOUNTER → 2023-05-24 | Outpatient (CLI) | payer OTHER ==
[~2023-05-24] MED LIST changes: +IBU800 MG; +Ondansetron4 MG/2 M2; +PROP60; +[UNRECOGNIZED DRUG - OTHER]
[2023-06-09 10:11] LABS: HPV GENOTYPE 16 Not Detected; HPV GENOTYPE 18 Not Detected; HPV HIGH RISK Not Detected; HPV SOURCE Not Provided
== END | disposition home or self-care (01) ==
LOC: LAB SHORT 09:40 → LAB 09:40
PROVIDERS: Registered Nurse
DX: Z01.419 Encounter for gynecological examination (general) (routine) without abnormal findings (principal)
CPT/HCPCS: 87624; G0123